=== PATIENT | female | born 1950 | race Caucasian/White ===

== ENCOUNTER 2017-03-03 16:11 | Emergency (ER) | payer MEDICARE, MEDICAID ==
[~2017-03-03] VITALS: Ht 162.6 cm; Wt 96.6 kg
[~2017-03-03 16:11] MED LIST: LEVO100T85 PO; LOSA50TA52 PO; OMEP-122 PO; PARO-38 PO; RIVA20TA PO
[2017-03-03 16:15] VITALS: Ht 162.6 cm; Wt 96.6 kg
--- OUTSIDE RECORDS SUMMARY | 2017-03-03 16:15 | XMS REPORT | Referral Summary ---
Author Author [facility], [facility] Organization [facility] Address Unknown Phone Unavailable Care Team Providers Care Inspector Dials Name Role Phone Bob Maloney Primary Care Physician [phone] Encounter VC Date(s): 06/21/16 - 06/21/16 [facility] [place], [address] [place] [id number] Discharge Disposition: 01-Home or Self Care Attending Physician: Bob Maloney DO Vital Signs No data available for this section Problem List Condition Effective Dates Status Health Status Informant Morbid Active patient obesity(Confirmed) Allergies, Adverse Reactions, Alerts No Known Medication Allergies Medications aspirin 0 Refill(s) Start Date: 05/14/15 Status: Ordered atenolol 100 mg oral tablet 100 mg 1 tabs, Oral, Daily, # 30 tabs, 0 Refill(s), Pharmacy: [id number], 1 tabs Oral Daily Start Date: 05/14/15 Status: Ordered levothyroxine 100 mcg (0.1 mg) oral tablet 100 mcg 1 tabs, Oral, Daily, # 90 tabs, 3 Refill(s), Pharmacy: [facility], 1 tabs Oral Daily Start Date: 06/15/16 Status: Ordered Results No data available for this section Immunizations No data available for this section Procedures No data available for this section Social History Social History Type Response Smoking Status Never smoker Assessment and Plan No data available for this section
--- OUTSIDE RECORDS SUMMARY | 2017-03-03 16:15 | XMS REPORT | Referral Summary ---
Author Author [facility] Organization [facility] Address Unknown Phone Unavailable Care Team Providers Care Truck Body Repairer Name Role Phone Bob Maloney Primary Care Physician [phone] Encounter VC Date(s): 06/11/15 - 06/11/15 [facility] [place], [address] [place] [address]- Discharge Diagnosis: Cataract of left eye Discharge Disposition: 01-Home or Self Care Attending Physician: Bob Maloney DO Admitting Physician: Bob Maloney DO Vital Signs Most recent to 1 oldest [Reference Range]: Temperature Tympanic 36.3 degC [36.6-38.1 degC] *LOW* (06/11/15 9:47 AM) Peripheral Pulse 60 bpm Rate [60-100 bpm] (06/11/15 9:47 AM) Blood Pressure 130/68 mmHg [90-140/60-90 mmHg] (06/11/15 9:47 AM) Problem List Condition Effective Dates Status Health Status Informant Morbid Active patient obesity(Confirmed) Allergies, Adverse Reactions, Alerts No Known Medication Allergies Medications aspirin 0 Refill(s) Start Date: 05/14/15 Status: Ordered atenolol 100 mg oral tablet 100 mg 1 tabs, Oral, Daily, # 30 tabs, 0 Refill(s), Pharmacy: [facility], 1 tabs Oral Daily Start Date: 05/14/15 Status: Ordered levothyroxine 100 mcg (0.1 mg) oral tablet 100 mcg 1 tabs, Oral, Daily, # 30 tabs, 0 Refill(s), Pharmacy: [facility], 1 tabs Oral Daily Start Date: 05/14/15 Status: Ordered Results No data available for this section Immunizations No data available for this section Procedures No data available for this section Social History Social History Type Response Smoking Status Never smoker Assessment and Plan Extracted from: Title: Office Visit Note Author: Bob Maloney DO Date: 06/11/15 Assessment/Plan Cataract of left eye 1. Will refer the patient to project scientist for further evaluation and recommendation for loss of vision of the left eye. Ordered: Office Visit Level 3 Est 24788
--- OUTSIDE RECORDS SUMMARY | 2017-03-03 16:15 | XMS REPORT | Referral Summary ---
Author Author [facility] Organization [facility] Address Unknown Phone Unavailable Care Team Providers Care Skate Maker Name Role Phone Bob Maloney Primary Care Physician [phone] Encounter VC Date(s): 07/04/16 - 07/04/16 [facility], [address] [place] [address]- Discharge Diagnosis: Generalized anxiety disorder Discharge Disposition: 01-Home or Self Care Attending Physician: Bob Maloney DO Admitting Physician: Bob Maloney DO Vital Signs Most recent to 1 oldest [Reference Range]: Temperature Tympanic 36.5 degC [36.6-38.1 degC] *LOW* (07/04/16 3:59 PM) Peripheral Pulse 78 bpm Rate [60-100 bpm] (07/04/16 3:59 PM) Blood Pressure 142/83 mmHg [90-140/60-90 mmHg] *HI* (07/04/16 3:59 PM) Problem List Condition Effective Dates Status Health Status Informant Morbid Active patient obesity(Confirmed) Allergies, Adverse Reactions, Alerts No Known Medication Allergies Medications aspirin 0 Refill(s) Start Date: 05/14/15 Status: Ordered atenolol 100 mg oral tablet 100 mg 1 tabs, Oral, Daily, # 30 tabs, 0 Refill(s), Pharmacy: [facility], 1 tabs Oral Daily Start Date: 05/14/15 Status: Ordered levothyroxine 100 mcg (0.1 mg) oral tablet 100 mcg 1 tabs, Oral, Daily, # 90 tabs, 3 Refill(s), Pharmacy: [facility], 1 tabs Oral Daily Start Date: 06/15/16 Status: Ordered omeprazole 20 mg oral delayed release tablet 20 mg 1 tabs, Oral, Daily, # 90 tabs, 3 Refill(s), Pharmacy: [facility] # [id number], 1 tabs Oral Daily,x90 days Start Date: 07/04/16 Stop Date: 06/29/17 Status: Ordered Paxil 20 mg oral tablet 20 mg 1 tabs, Oral, Daily, # 90 tabs, 3 Refill(s), Pharmacy: [facility] # [id number], 1 tabs Oral Daily,x90 days Start Date: 07/04/16 Stop Date: 06/29/17 Status: Ordered Xarelto 20 mg oral tablet 20 mg 1 tabs, Oral, qPM, # 30 tabs, 3 Refill(s), Pharmacy: [facility] # [id number], 1 tabs Oral qPM Start Date: 06/24/16 Status: Ordered Results No data available for this section Immunizations No data available for this section Procedures No data available for this section Social History Social History Type Response Smoking Status Never smoker Assessment and Plan Extracted from: Title: Office Visit Note Author: Bob Maloney DO Date: 07/04/16 Assessment/Plan 1.Generalized anxiety disorder 1. Continue with Paxil 20 mg daily. 2. Follow-up when she gets back from [place] for evaluation. Ordered: Office Visit Level 3 Est 89013 Orders: omeprazole, 20 mg 1 tabs, Oral, Daily, # 90 tabs, 3 Refill(s), Pharmacy: [facility] #[id number], 1 tabs Oral Daily,x90 days PARoxetine, 20 mg 1 tabs, Oral, Daily, # 90 tabs, 3 Refill(s), Pharmacy: [facility] #[id number], 1 tabs Oral Daily,x90 days
--- OUTSIDE RECORDS SUMMARY | 2017-03-03 16:15 | XMS REPORT | Referral Summary ---
Author Author [facility], [facility] Medicine Organization [facility] Address Unknown Phone Unavailable Care Team Providers Care Oracle R12 Developer Name Role Phone Bob Maloney Primary Care Physician [phone] Encounter VC Date(s): 06/15/16 - 06/15/16 [facility] [place], [address] [place] [id number]- Discharge Diagnosis: Pulmonary emboli Discharge Diagnosis: HTN (hypertension) Discharge Diagnosis: Adult onset hypothyroidism Discharge Disposition: 01-Home or Self Care Attending Physician: Bob Maloney DO Admitting Physician: Bob Maloney DO Vital Signs Most recent to 1 oldest [Reference Range]: Peripheral Pulse 77 bpm Rate [60-100 bpm] (06/15/16 2:50 PM) Respiratory Rate 18 br/min [14-20 br/min] (06/15/16 2:50 PM) Blood Pressure 138/80 mmHg [90-140/60-90 mmHg] (06/15/16 2:50 PM) SpO2 94 % (06/15/16 2:50 PM) Problem List Condition Effective Dates Status Health Status Informant Morbid Active patient obesity(Confirmed) Allergies, Adverse Reactions, Alerts No Known Medication Allergies Medications aspirin 0 Refill(s) Start Date: 05/14/15 Status: Ordered atenolol 100 mg oral tablet 100 mg 1 tabs, Oral, Daily, # 30 tabs, 0 Refill(s), Pharmacy: [id number], 1 tabs Oral Daily Start Date: 05/14/15 Status: Ordered levothyroxine 100 mcg (0.1 mg) oral tablet 100 mcg 1 tabs, Oral, Daily, # 90 tabs, 3 Refill(s), Pharmacy: [id number], 1 tabs Oral Daily Start Date: 06/15/16 Status: Ordered Results No data available for this section Immunizations No data available for this section Procedures No data available for this section Social History Social History Type Response Smoking Status Never smoker Assessment and Plan Extracted from: Title: Ambulatory Patient Education Author: Bob Maloney DO Date: 06/15/16 Family Medicine Embolia pulmonar (Pulmonary Embolism) John embolia pulmonar (EP) es un cogulo de beverley que varela viajado hasta el pulm n y obstruye la circulacin sangunea en el pulmn afectado. La mayor parte de los cogulos provienen de las venas profundas de las piernas o de la pelvis. Es un trastorno peligroso y potencialmente mortal que, si se diagnostica , puede tratarse. CAUSAS Los cogulos sanguneos pueden formarse en las venas por diferentes causas. Generalmente son varios los motivos que causan la formacin de cogulos. Entre los que se incluyen: El flujo sanguneo lento. El interior de la vena daado por algn motivo. El paciente tiene algn trastorno que favorece la formacin de co gulos. FACTORES DE RIESGO Algunas personas son ms propensas que otras a tener embolia pulmonar. Los factores de riesgo son: Fumar. Tener sobrepeso (ser manuel). Permanecer sentado o acostado jeevan un tiempo prolongado. Aqu se incluyen un viaje de larga distancia, casos de parlisis o en recuperacin de john enfermedad o ciruga. Otros factores que aumentan el riesgo son: La edad avanzada, especialmente despus de los 75aos de edad. Tener antecedentes familiares de cogulos de beverley o vika tenido ya un cogulo de beverley. Que le hayan practicado john ciruga mayor o de duracin prolongada. [place] es an ms frecuente en cirugas de cadera, rodilla o estmago (abdomen ). La ciruga de cadera es especialmente riesgosa. Tener colocado un tubo sher y jo (catter) dentro de john vena jeevan un procedimiento mdico. Fractura de cadera o de pierna. Cncer o tratamiento para el cncer. Los medicamentos que contienen estrgenos. Estos incluyen las pldoras anticonceptivas y la terapia de reemplazo hormonal. Otras afecciones circulatorias o cardacas. Embarazo y parto. Los cambios hormonales jeevan el embarazo facilitan la formacin de co gulos. El feto hace presin sobre las venas de la pelvis. Hay un riesgo de que se lesionen las venas jeevan el parto o la kiya kings. El riesgo es mayor inmediatamente despus del parto. PREVENCIN Ejercite las piernas con regularidad. Camine media hora todos los tran. Mantenga un peso apropiado para uriostegui altura. Evite permanecer sentado o parado sin moverse jeevan perodos prolongados. Las mujeres, especialmente las que tienen ms de 35aos, deben considerar los riesgos y beneficios de macie medicamentos que contengan estr ramirez, incluidas las pldoras anticonceptivas. No fume, especialmente si jonathon estrgenos. Los viajes de larga distancia pueden aumentar el riesgo. Ejercite las piernas caminando o moviendo los msculos john vez por hora. Muchos de los factores de riesgo anteriormente mencionados se refieren a situaciones que ocurren con la hospitalizacin, ya sea por enfermedad, lesin o ciruga programada. La prevencin puede ser con o sin medicamentos. El mdico lo evaluar para determinar la necesidad de prevenir la tromboembolia venosa cuando ingrese al hospital. Si debe someterse a john cirug a, uriostegui cirujano lo evaluar el mismo da o el da despus de la ciruga. SNTOMAS Los sntomas de john EP normalmente comienzan de repente, y entre ellos se incluyen: Falta de aire. Tos. Tos con beverley o mucosidad sanguinolenta. Dolor en el pecho. Dolor que empeora al hacer inspiraciones profundas. Latidos cardacos rpidos. DIAGNSTICO El mdico averiguar evelyn antecedentes mdicos, le zeina un examen fsico y descartar posibles causas para evaluar uriostegui riesgo de embolia pulmonar. Si tiene un riesgo intermedio o alto, pueden hacerle otros estudios. Estos incluyen los siguientes: Anlisis de beverley, adore estudios de coagulacin. Estudios de diagnstico por imgenes, adore ecografas, tomografas computarizadas, resonancias magnticas y otros exmenes para determinar si tiene cogulos de beverley en las piernas o los pulmones. Un electrocardiograma, para determinar si hay sobrecarga cardaca debido a cogulos sanguneos en los pulmones. TRATAMIENTO El tratamiento ms frecuente de la EP se realiza con medicamentos anticoagulantes que reducen la tendencia de la beverley a coagularse. Los anticoagulantes pueden impedir la formacin de nuevos cogulos sanguneos o el aumento del tamao de los cogulos existentes. No pueden disolver los co gulos ya formados. El organismo lo hace por s mismo con el tiempo. Los anticoagulantes pueden administrarse por va oral, intravenosa (IV) o inyectable. Uriostegui mdico determinar la mejor forma para usted. Con lolly frecuencia, se utilizan medicamentos para disolver los co gulos (trombolticos) para tratar la EP. Ellos conllevan un alto riesgo de sangrado, por lo que se utilizan principalmente en los casos ms graves. En contadas ocasiones, un cogulo de beverley en la pierna debe eliminarse quirrgicamente. Si usted no puede macie anticoagulantes, uriostegui mdico podra indicar la colocacin de un filtro en la vena principal del abdomen. Los filtros impiden que los cogulos lleguen a los pulmones. INSTRUCCIONES PARA EL CUIDADO EN EL HOGAR [place] todos los medicamentos adore se lo haya indicado el mdico. Aprenda tanto adore pueda sobre la TVP. Utilice un brazalete o lleve consigo john tarjeta de alerta mdico. Consulte con uriostegui mdico cundo podr volver a evelyn actividades normales. Es importante mantenerse activo para prevenir los cogulos sangu neos. Si est tomando un medicamento anticoagulante, evite los deportes de contacto. Es muy importante hacer ejercicios. [place] es especialmente importante jeevan viajes, o al estar sentado o de pie jeevan largos perodos. Camine o contraiga y relaje frecuentemente los msculos de las piernas para ejercitarlas. Camine con frecuencia. Es posible que deba usar medias de compresin. Son medias elsticas apretadas que aplican presin a las piernas. Esta presin ayuda a evitar que la beverley en las piernas se coagule. Sales Recruiting Coordinator tomarla warfarina La warfarina es un medicamento que se jonathon diariamente por va oral. Uriostegui m dico le indicar la duracin del tratamiento (generalmente de 3 a 6meses y a veces toda la lainey). Si jonathon warfarina: Aprenda sprinkler fitter helper macie warfarina y cules son los alimentos que pueden influir en el efecto que esta tiene en el organismo. Las dosis altas y bajas de warfarina son peligrosas. El exceso de warfarina aumenta el riesgo de sangrado. Dosis demasiado bajas de warfarina aumentan el riesgo de formacin de cogulos. La warfarina y los anlisis de beverley peridicos Jeevan el tratamiento con warfarina, es necesario que se realicen helga dicamente anlisis de beverley que miden el tiempo de coagulacin. Estos an lisis de beverley suelen incluir tanto el tiempo de protrombina (PT) adore el ndice internacional normalizado (INR). Los resultados del PT y del INR permiten al mdico ajustar la dosis de warfarina. Es muy importante que le cesilia an lisis del PT y el INR con la frecuencia que el mdico lo indique. La warfarina yla dieta Evite cambios importantes en uriostegui dieta, o hable con uriostegui mdico antes de cambiarla. Programe john loida con un nutricionista matriculado para que responda evelyn preguntas. Muchos de los alimentos, especialmente los que contienen vitamina K pueden interferir con la warfarina y afectar los resultados de PT y del INR. Debe ingerir john cantidad gume de alimentos con alto contenido de vitaminaK, entre los que se incluyen: espinaca, col rizada, brcoli, repollo, acelga y nabos verdes, repollitos de Bruselas, guisantes, coliflor, algas y perejil. Hgado de luda y de cerdo. T ankur. Aceite de soja. La warfarina y otros medicamentos Muchos medicamentos interfieren con la warfarina y afectan los resultados del PT y del INR. Usted debe: Informar al mdico sobre todos los medicamentos, las vitaminas y los suplementos que jonathon, entre ellos, aspirina y otros antiinflamatorios de venta berhane. Tenga especial cuidado con la aspirina y los medicamentos antiinflamatorios. Consulte a uriostegui mdico antes de tomarlos. No tome ni suspenda ningn medicamento tanto recetado adore de venta berhane, excepto si se lo indica el mdico o el farmacutico. Efectos secundarios de la warfarina La warfarina puede causar efectos secundarios, por ejemplo, hematomas y dificultad para detener el sangrado. Pregntele al mdico o al farmacutico sobre otros efectos secundarios de la warfarina. Usted deber: Ejercer presin sobre las heridas cortantes jeevan ms tiempo que lo habitual. Informar al dentista y a otros mdicos que est tomando warfarina, antes de someterse a cualquier procedimiento que pueda causar sangrado. La warfarina con alcohol y tabaco Beber alcohol con frecuencia puede potenciar el efecto de la warfarina y causar sangrado excesivo. Es preferible evitar macie bebidas alcohlicas o consumir solo muy pequeas cantidades cuando se est en tratamiento con warfarina. Hgale saber a uriostegui mdico si modifica uriostegui consumo de alcohol. No consuma ningn producto que contenga tabaco, adore cigarrillos, tabaco de mascar o cigarrillos electrnicos. Si fuma, abandone el hbito. P louise ayuda al mdico, si es necesario. Medicamentos alternativos de la warfarina: Inhibidores del factorX activado Estos anticoagulantes se kacie por va oral, generalmente jeevan varias semanas o ms tiempo. Es importante que tome el medicamento a la misma hora todos los tran. No es necesario realizar anlisis de beverley peridicos cuando se kacie estos medicamentos. Estos tienen menos interacciones con los alimentos y los medicamentos que la warfarina. Los efectos secundarios de esta clase de medicamentos son similares a los que se presentan con la warfarina, incluidos los hematomas y el sangrado excesivos. Pregnteles al mdico o al farmacutico sobre otros posibles efectos secundarios. SOLICITE ATENCIN MDICA SI: Nota que el ritmo de evelyn latidos cardacos est acelerado. Se siente ms dbil o ms cansado que de costumbre. Siente que va a desmayarse. Observa un aumento de los hematomas. Siente que los sntomas no mejoran en el tiempo esperado. Tiene efectos secundarios por el medicamento. SOLICITE ATENCIN MDICA DE INMEDIATO SI: Siente dolor en el pecho. Tiene dificultad para respirar. Aumenta la hinchazn o el dolor en john pierna. Tose y escupe beverley. Nota beverley en el vmito, en las heces o en la orina. Tiene fiebre. Los sntomas de EP pueden representar un problema grave que es john emergencia.No espere para arthur si los sntomas desaparecen. Solicite atencin m dica de inmediato. Comunquese con el servicio de emergencias de uriostegui localidad (911 en los [place]).No conduzca por evelyn propios medios hasta el hospital. Esta informacin no tiene adore fin reemplazar el consejo del mdico. [facility] rese de hacerle al mdico cualquier pregunta que tenga. Document Released: 08/09/2006 Document Revised: 11/20/2015 [facility] Patient Information 2016 [place]. Pharmacology Warfarina: lo que debe saber (Warfarin: What You Need to Know) La warfarina es un anticoagulante. Los anticoagulantes ayudan a prevenir la formacin de cogulos de beverley. Tambin ayudan a detener el desarrollo de co gulos de beverley. A veces, se dice que la warfarina es un "anticoagulante". Normalmente, cuando hay un garrett o lesin en los tejidos, los cogulos impiden la prdida de beverley. A veces, se sriram cogulos dentro de los vasos sanguneos que obstruyen el flujo sanguneo a travs del sistema circulatorio (trombosis). Estos cogulos pueden viajar por el torrente sangu irwin y se alojan en los vasos sanguneos pequeos del cerebro, lo que puede causar un ictus, o en los pulmones (embolia pulmonar). QUINES DEBEN UTILIZAR WARFARINA La warfarina se receta en aquellos pacientes que tienen riesgo de desarrollar co gulos sanguneos peligrosos: Las personas que tienen john vlvula cardaca mecnica, un ritmo card aco irregular llamado fibrilacin auricular o ciertos trastornos de la coagulacin. Las personas que tuvieron cogulos sanguneos peligrosos en el pasado, incluidas las que tuvieron un ictus, john embolia pulmonar o trombosis en las piernas (trombosis venosa profunda [TVP]). Las personas con un cogulo sanguneo existente, adore john embolia pulmonar. DOSIS DE WARFARINA Los comprimidos de warfarina vienen en diferentes concentraciones. Cada krupa de ellos es de diferente color y tiene la cantidad de warfarina (en miligramos) claramente impresa en el comprimido. Si cuando le aida john nueva receta el color del comprimido es diferente al habitual, infrmelo inmediatamente a uriostegui farmac utico o mdico. SUPERVISIN DE LA WARFARINA El objetivo del tratamiento con warfarina es disminuir la formacin de co gulos, marlon no impedir completamente la coagulacin. Uriostegui mdico supervisar atentamente el efecto anticoagulante de la warfarina y ajustar la dosis seg n sea necesario. Por uriostegui seguridad, se usan anlisis de beverley llamados tiempo de protrombina (PT) o ndice internacional normalizado (INR). Ambos anlisis pueden hacerse con un pinchazo en el dedo o con john extraccin de beverley. Cuanto ms tiempo necesite la beverley para coagular, mayor ser el nivel de TP o de INR. Uriostegui mdico le informar cul es uriostegui rango de PT o INR "deseado". Si en cualquier momento uriostegui PT o INR estn por encima del rango deseado, existe riesgo de hemorragia. Si el nivel de PT o INR es lolly que el rango deseado, existe riesgo de formar cogulos. Ya sea que comience a recibir warfarina mientras est hospitalizado o en el consultorio de uriostegui mdico, deber controlarse el PT o INR dentro de la primera semana de comenzar el medicamento. Inicialmente, a algunas personas se les indica que se controlen el PT o INR hasta dos veces por semana. John vez que se haya encontrado la dosis de mantenimiento, le controlarn el PT o INR con menos frecuencia, generalmente john vez cada dos a cuatro semanas. La dosis de warfarina podra ajustarse si el PT o INR no estn dentro del rango deseado. Es importante que cumpla con los controles de laboratorio y las consultas mdicas que le indiquen. No cumplir con las visitas puede resultar en john lesin, dolor o discapacidad crnica o permanente debido a que la warfarina es un medicamento que requiere john estrecha vigilancia. CULES SON LOS EFECTOS ADVERSOS DE LA WARFARINA? Ryann cantidad de warfarina puede producir sangrado (hemorragia) en cualquier parte del cuerpo. Podra ser sangrado de las encas, beverley en la orina, materia fecal con beverley u oscura, hemorragia nasal que no frena f cilmente, escupir beverley al toser o vomitar con beverley. Muy poca cantidad de warfarina puede aumentar el riesgo de cogulos sanguneos. Muy poca o ryann warfarina tambin puede aumentar el riesgo de ictus. La warfarina puede causar john erupcin cutnea o irritacin, fiebre inusual, nuseas o malestar estomacal constantes o dolor intenso en las articulaciones o la espalda. PRECAUCIONES ESPECIALES MIENTRAS SE EST TOMANDO WARFARINA La warfarina debe ser tomada exactamente adore se le indic. Es muy importante que reciba la warfarina segn las indicaciones, ya que podra tener tanto john hemorragia adore cogulos sanguneos que terminen produciendo john lesin, dolor o discapacidad crnica o permanente. [place] el medicamento todos los tran a la misma hora. Si olvida macie john dosis, puede tomarla si an no pasaron 6horas del momento correspondiente. No modifique la dosis de warfarina por evelyn propios medios para compensar la dosis que varela omitido. Si omite ms de dos dosis consecutivas, comunquese con uriostegui mdico para que le d indicaciones. Evite las situaciones que le puedan producir hemorragias. Puede tener tendencia a sangrar ms fcilmente que lo habitual mientras jonathon warfarina. Las siguientes recomendaciones pueden limitar el sangrado: Utilice un cepillo de dientes blando. Utilice un hilo dental encerado. Rasrese con afeitadora elctrica y no con hoja de afeitar. Limite el uso de objetos afilados. Evite las actividades potencialmente peligrosas, adore los deportes de contacto. Warfarina y embarazo o amamantamiento No se aconseja el uso de warfarina jeevan el primer trimestre del embarazo debido al aumento de riesgo para el beb de tener defectos aaron nitos. En ciertas situaciones, john jovita puede macie warfarina despus del primer trimestre del embarazo. John jovita que queda embarazada o planifica estarlo mientras jonathon warfarina debe informarlo al mdico inmediatamente. Aunque la warfarina no pasa hacia la leche materna, john jovita que desea amamantar mientras est tomando warfarina debe consultarlo con uriostegui mdico. Consumo de alcohol, tabaquismo y drogas ilegales El alcohol afecta la forma en que la warfarina funciona en el organismo. Es preferible evitar las bebidas alcohlicas o consumir muy pequeas cantidades cuando se est en tratamiento con warfarina. En general, debe limitar el consumo de alcohol a 1onza (30ml) de licor, 6onzas (180ml) de vino o 12onzas (360ml) de cerveza por da. Hgale saber a uriostegui mdico si modifica uriostegui consumo de alcohol. El tabaquismo afecta el funcionamiento de la warfarina. Lo ideal es evitar fumar cuando se est en tratamiento con warfarina. Hgale saber a uriostegui m dico si modifica uriostegui hbito de tabaquismo. Lo ideal es evitar todas las drogas ilegales cuando se est en tratamiento con warfarina porque existen pocos estudios que muestren sprinkler fitter helper interacta con estas drogas. Otros medicamentos y suplementos nutricionales Muchos medicamentos recetados y de venta berhane pueden interferir con la warfarina. Asegrese de informar a todos evelyn mdicos que est tomando warfarina. Notifique al mdico que le recet la warfarina o al farmacutico antes de comenzar o interrumpir cualquier otro medicamento, incluso las vitaminas, los suplementos dietarios y los medicamentos para el dolor de venta berhane. Es posible que deba ajustar la dosis de warfarina. Algunos medicamentos de venta berhane que pueden aumentar el riesgo de sangrado mientras est tomando warfarina son los siguientes: Paracetamol. Aspirina. Antiinflamatorios no esteroides (SALAZAR), adore ibuprofeno o naproxeno. Vitamina E. Consideraciones nutricionales Los alimentos con cantidades moderadas o altas de vitaminaK interfieren con la warfarina. Evite cambios importantes en uriostegui dieta, o hable con uriostegui mdico antes de cambiarla. Consuma john cantidad consistente de alimentos con un nivel moderado o alto de vitaminaK. Consumir menos alimentos con vitaminaK puede aumentar el riesgo de sangrado. Consumir ms de estos alimentos puede aumentar el riesgo de cogulos sanguneos. Consulte a un nutricionista si tiene otras preguntas sobre las consideraciones en la dieta. Alimentos que tienen un nivel muy alto de vitaminaK: Los vegetales, adore la acelga suiza y la remolacha, y las hojas de berza , mostaza o nabo (frescos o congelados, cocidos). Col rizada (fresca o congelada, cocida). Perejil (crudo). Espinaca (cocida). Alimentos que tienen un nivel alto de vitaminaK: Esprragos (frescos, cocidos). Brcoli. Repollo mei (cocido). Repollitos de Bruselas (frescos o congelados, cocidos). Repollo (cocido). Col. Alimentos que tienen un nivel moderado de vitaminaK: Arndanos. Frijoles aroldo. Endivia (cruda). Savana de hoja ankur (cruda). Cebollines verdes (crudos). Col rizada (cruda). Quimbomb (congelado, cocido). Pltanos (fritos). Savana chace (cruda). Chucrut (en shaun). Espinaca (cruda). LLAME A URIOSTEGUI CLNICA O MDICO SI USTED: Planifica someterse a john ciruga o un procedimiento. Se siente enfermo, especialmente si tiene diarrea o vmitos. Hace o planifica hacer cambios importantes en la dieta. Comienza a macie o interrumpe medicamentos recetados o de venta berhane. Queda embarazada, planifica quedar o beatris estarlo. Tiene perodos menstruales ms abundantes. Sufre john cada, un accidente o tiene sntomas de sangrado o hematomas inusuales. Tiene fiebre inusual. LLAME AL 911 EN LOS ESTADOS UNIDOS O CONCURRA AL SERVICIO DE EMERGENCIAS SI USTED: Beatris que tiene john reaccin alrgica a la warfarina. Los signos de john reaccin alrgica pueden ser picazn, erupcin, ronchas, hinchazn, opresi n en el pecho o problemas para respirar. Observa beverley en la orina. Los signos pueden ser orina de color t, rojizo o weaver. Observa beverley en las heces. Los signos pueden ser heces negras o jefferson brillante. Vomita o tose con beverley. En estos casos, la beverley podra ser de color jefferson brillante o tener la apariencia de "caf molido". Tiene sangrado que no se interrumpe despus de aplicar presin jeevan 30minutos, por ejemplo hi, sangrado de la nariz u otras lesiones. Tiene dolor intenso en las articulaciones o la espalda. Tiene dolor de kassy intenso. Siente debilidad o adormecimiento sbito de la francia, el brazo o la pierna, especialmente en un lado del cuerpo. Siente confusin o problemas para comprender sbitamente. Tiene dificultad sbita en la visin de krupa o ambos ojos. Tiene problemas para caminar, mareos, prdida del equilibrio o de la coordinacin sbitamente. Tiene dificultad para hablar o comprender (afasia). Esta informacin no tiene adore fin reemplazar el consejo del mdico. Aseg rese de hacerle al mdico cualquier pregunta que tenga. Document Released: 02/14/2008 Document Revised: 11/20/2015 [facility] Patient Information 2016 [place]. No follow up information was provided. Extracted from: Title: Office Visit Note Author: Bob Maloney DO Date: 06/15/16 Assessment/Plan 1.Pulmonary emboli, Other pulmonary embolism without acute cor pulmonale 1. Hospital records are reviewed in detail. I agree with the recommendations made by the hospitalist. 2. We had the clinical pharmacist look into whether her insurance would cover Xarelto. She does not have any prescription coverage. 3. Pathophysiology of pulmonary embolism discussed in detail with the patient in her akut[place] language, all questions were answered. 4. Management of anticoagulation therapy with Coumadin was discussed in detail. 5. Her INR yesterday was 2.5, continue with warfarin 5 mg daily. Recheck INR in one week. 6 . She will need repeat chest CT with PE protocol in 6 months. Ordered: [facility] 7 Day Disch [id number] 2.HTN (hypertension), Essential (primary) hypertension 1. Her blood pressure is well controlled at this time. 2. Continue low-salt diet. 3. Weight loss recommended. 4. Continue with amlodipine, atenolol and losartan/hydrochlorothiazide as previous. 5. Follow-up in 3 months for blood pressure management. Ordered: [facility] 7 Day Disch [id number] 3.Adult onset hypothyroidism, Other specified hypothyroidism 1. Continue with levothyroxine 100 g daily. 2. Recheck TSH in 6 months. Ordered: [facility] 7 Day Disch [id number] Orders: levothyroxine, 100 mcg 1 tabs, Oral, Daily, # 90 tabs, 3 Refill(s), Pharmacy: [id number], 1 tabs Oral Daily
--- OUTSIDE RECORDS SUMMARY | 2017-03-03 16:15 | XMS REPORT | Referral Summary ---
Author Author [facility], Family Medicine Organization [facility] Address Unknown Phone Unavailable Care Team Providers Care Strap Buckler Machine Name Role Phone Bob Maloney Primary Care Physician [phone] Encounter VC Date(s): 06/20/16 - 06/20/16 [facility], [address] [place] [address]- Discharge Disposition: 01-Home or Self Care Attending Physician: Bob Maloney DO Admitting Physician: Bob Maloney DO Vital Signs No data available for this section Problem List Condition Effective Dates Status Health Status Informant Morbid Active patient obesity(Confirmed) Allergies, Adverse Reactions, Alerts No Known Medication Allergies Medications aspirin 0 Refill(s) Start Date: 05/14/15 Status: Ordered atenolol 100 mg oral tablet 100 mg 1 tabs, Oral, Daily, # 30 tabs, 0 Refill(s), Pharmacy: [id number], 1 tabs Oral Daily Start Date: 05/14/15 Status: Ordered levothyroxine 100 mcg (0.1 mg) oral tablet 100 mcg 1 tabs, Oral, Daily, # 90 tabs, 3 Refill(s), Pharmacy: [facility], 1 tabs Oral Daily Start Date: 06/15/16 Status: Ordered Results No data available for this section Immunizations No data available for this section Procedures No data available for this section Social History Social History Type Response Smoking Status Never smoker Assessment and Plan No data available for this section
--- OUTSIDE RECORDS SUMMARY | 2017-03-03 16:15 | XMS REPORT | Continuity of Care Document ---
Author Author [facility] Organization [facility] Address Unknown Phone Unavailable Support Name Relationship Address Phone TANYA SMITH MD Caregiver [address] [place] [address] Unavailable TANYA SMITH MD Caregiver [address] [place] [address] Unavailable MELL COSTA DO Caregiver [address] [place] [address] Unavailable JORGE MAY DO Caregiver [address] [place] [address] [place] [address] Unavailable ALLYSON YAO Next Of Kin [address] [place], [place] [id number] Insurance Providers Guarantor Abril Multani Address [address] [place] [address] Email DENIED/NO TO PT PORTAL Payer Medicaid Policy Number [id number] Subscriber's Name Abril Multnai Relationship 18 Self Effective Date 16 Expiration Date 16 Payer Medicare Policy Number [id number] Subscriber's Name Abril Multani Relationship 18 Self Advance Directives Directive Response Recorded Date/Time Ordered Resuscitation Status Full Code 06/10/16 11:31pm Resuscitation Documents on File No 06/10/16 11:58pm DPOA for Healthcare Only No 06/10/16 11:58pm Living Will No 06/10/16 11:58pm Problems Active Problems Medical Problem Onset Date Status Acute pulmonary embolism Unknown Acute CAD (coronary artery disease) Unknown Chronic Depression Unknown Chronic HTN (hypertension) Unknown Chronic Hyperglycemia Unknown Acute Hypokalemia Unknown Acute Hypothyroidism Unknown Chronic Morbid obesity Unknown Chronic Medications Current Home Medications Medication Dose Units Route Directions Days Qty Instructions Start Date Amlodipine Besylate 5 Mg Tablet 5 Mg Oral Daily 06/10/16 Difenidol 25 Mg Oral Daily 06/10/16 Enoxaparin Sodium (Lovenox) 150 Mg/Ml Inj 150 Mg Sub-Q Daily 5 Days 06/11/16 Levothyroxine Sodium 100 Mcg Tablet 100 Mcg Oral Daily 07/07/13 Losartan/Hydrochlorothiazide (Losartan-Hctz 50-12.5 Mg Tab) 1 Each Tablet 1 Tab Oral Daily 06/10/16 Warfarin Sodium (Coumadin) 5 Mg Tablet 5 Mg Oral Give At Noon 30 Tablet Take 1 tablet, by mouth, 1 time a day (at NOON). 06/11/16 Past Home Medications Medication Directions Ordered Status Aspirin 81 Mg Tab.chew, 100 Mg Oral Bedtime 07/07/13 Discontinued Social History Social History Problem Response Recorded Date/Time Onset Date Status Chewing Tobacco Status No 07/06/2013 9:10pm Not Applicable Not Applicable Hx Alcohol Use No 06/10/2016 11:23pm Not Applicable Not Applicable Has the pt used tobacco in the last 12 months No 06/11/2016 12:04am Not Applicable Not Applicable Tobacco Usage none 06/10/2016 11:44pm Not Applicable Not Applicable Query Response Start Date Stop Date Smoking Status Never smoker Hospital Discharge Instructions Instructions: Care Instructions: Reason for Hospitalization: Acute PE I was in the hospital because (patient own words): "I felt really bad, blood clot" Discharge Diet: Regular diet Discharge Activity: Activity as tolerated Follow Up Appointments: Make follow up apt with Dr May for next week. You will need to have a INR lab drawn on mondayJun [address] May's office. Call his nurse monday to arrage this. Pending Lab / Results: No Pending Lab Patient Instructions: Stop taking Aspirin Present to [facility] infusion for Lovenox injections daily for 5 days Take Coumadin 5 mg once a day. This dose may need to be changed based on your INR blood draw on Monday. Dr. May well monitor your dosing following discharge from the hospital. Notify Physician If: Severe chest pain, severe shortness of breath, high fevers, severe headache or other concerning symptoms. Condition at time of discharge: Good Plan of Care Discharge Date 06/11/16 4:30pm Disposition 01 DISCHARGED HOME, SELF-CARE Instructions/Education Provided [facility] Discharge Instructions DI for Pulmonary Embolism Prescriptions See Medication Section Care Plan and Goals See Discharge Instructions Section Functional Status Query Response Date Recorded Mobility Status Ambulatory June 11, 2016 3:58pm Assistive Devices None June 11, 2016 3:58pm Activity Limitations Shortness of breath June 11, 2016 3:58pm Feeding Ability Independent June 11, 2016 3:58pm Toileting Ability Independent June 11, 2016 3:58pm Grooming Ability Independent June 11, 2016 3:58pm Dressing Ability Independent June 11, 2016 3:58pm Driving Ability Dependent June 11, 2016 3:58pm Housework Ability Dependent June 11, 2016 3:58pm Meal Preparation Ability Dependent June 11, 2016 3:58pm Stair Climbing Ability Independent June 11, 2016 3:58pm Ability to complete ADL's impeded by No change June 11, 2016 3:58pm Cognitive/Perceptual Impairments None June 11, 2016 3:58pm Preferred Method of Learning Video/TV June 11, 2016 12:07am Allergies, Adverse Reactions, Alerts Allergen Type Severity Reaction Status Last Updated NKDA Allergy Unknown Active 06/10/16 Immunizations Query Response on File Recorded Date/Time Hx Influenza Vaccination No 06/11/16 12:04am Hx Pneumococcal Vaccination No 06/11/16 12:04am Hx Influenza Vaccination No 06/11/16 12:04am Vital Signs Acute Vital Signs Vital Response Date/Time Temperature (Fahrenheit) 96.0 deg F (96.8 - 99.1) 06/11/2016 3:36pm Temperature (Calculated Celsius) 35.38917 degrees C (36.0 - 37.3) 06/11/2016 3:36pm Pulse Rate (adult) 63 bpm (60 - 100) 06/11/2016 3:36pm Respiratory Rate 18 breaths/min (10 - 20) 06/11/2016 3:36pm O2 Sat by Pulse Oximetry 96 % (90 - 100) 06/11/2016 3:36pm Oxygen Delivery Method Room Air 06/11/2016 3:36pm Blood Pressure 122/66 mm Hg 06/11/2016 3:36pm Blood Pressure Source Automatic Cuff 06/11/2016 3:36pm Height (Feet) 5 feet 06/10/2016 11:58pm Height (Inches) 3.00 inches 06/10/2016 11:58pm Weight (Kilograms) 101.200 kg 06/11/2016 7:43am Body Mass Index (BMI) 4.4 06/10/2016 11:58pm Results Laboratory Results Test Name Result Units Flags Reference Collection Date/Time Result Date/ Time Comments White Blood Count 9.0 T/MM3 4.5-11.0 06/11/2016 4:41am 06/11/2016 5: 38am Red Blood Count 4.87 M/MM3 4.00-5.20 06/11/2016 4:4106/11/2016 5: 38am Hemoglobin 13.7 GM/DL 12-16 06/11/2016 4:4106/11/2016 5:38am Hematocrit 42.9 % 36-46 06/11/2016 4:4106/11/2016 5:38am Mean Corpuscular Volume 88.1 UM3 80-100 06/11/2016 4:4106/11/2016 5: 38am Mean Corpuscular Hemoglobin 28.1 UUG 26-34 06/11/2016 4:412015 5:38am Mean Corpuscular Hemoglobin Concent 31.9 GM/DL 31-37 06/11/2016 4:06/11/2016 5:38am RDW Standard Deviation 47.2 FL 36.9-50.2 06/11/2016 4:4106/11/2016 5 :38am Platelet Count 270 T/MM3 130-400 06/11/2016 4:06/11/2016 5:38am Mean Platelet Volume 12.0 UM3 9.4-12.4 06/11/2016 4:06/11/2016 5: 38am Neutrophils (%) (Auto) 40.9 % 33-66 06/11/2016 4:06/11/2016 5: 38am Lymphocytes (%) (Auto) 50.2 % H 23-45 06/11/2016 4:06/11/2016 5: 38am Monocytes (%) (Auto) 6.8 % 0-9.0 06/11/2016 4:06/11/2016 5:38am Eosinophils (%) (Auto) 1.6 % 0-4 06/11/2016 4:06/11/2016 5:38am Basophils (%) (Auto) 0.3 % 0-2 06/11/2016 4:06/11/2016 5:38am Immature Granulocyte % (Auto) 0.2 % 0.0-0.5 06/11/2016 4:412015 5:38am Absolute Neutrophils (auto) 3.7 T/MM3 1.8-7.7 06/11/2016 4:41am 2015 5:38am Absolute Lymphocytes (auto) 4.5 T/MM3 1-4.8 06/11/2016 4:41am 2015 5:38am Absolute Monocytes (auto) 0.6 T/MM3 0-0.8 06/11/2016 4:41am 06/11/2016 5:38am Absolute Eosinophils (auto) 0.1 T/MM3 0-0.5 06/11/2016 4:41am 2015 5:38am Absolute Basophils (auto) 0.0 T/MM3 0-0.2 06/11/2016 4:41am 06/11/2016 5:38am Absolute Immature Granulocyte (auto 0.02 T/MM3 0.00-0.03 06/11/2016 4: 4106/11/2016 5:38am Prothromb Time International Ratio 1.01 0.99-1.21 06/11/2016 4:41am 06/11/2016 5:41am THERAPUTIC RANGE=2.00-3.00 FOR ANTI-THROMBOSIS THERAPUTIC RANGE=2.50-3.50 FOR IMPLANTED VALVE D-Dimer 311 NG/ML H 0-230 06/10/2016 9:12pm 06/10/2016 9:36pm <230 NG/ ML D-DU=PRESUMPTIVE NEGATIVE FOR PE OR DVT >230 NG/ML D-DU=ADDITIONAL EVAL FOR PE OR DVT RECOMMENDED Icterus Index < 2 0-7 06/11/2016 4:41am 06/11/2016 5:45am Chemistry Specimen Hemolysis < 15 0-25 06/11/2016 4:41am 06/11/2016 5 :45am 0-25: Specimen Exhibited No Hemolysis. Turbidity < 20 0-20 06/11/2016 4:41am 06/11/2016 5:45am Sodium Level 145 MEQ/L H 134-144 06/11/2016 4:41am 06/11/2016 5:45am Potassium Level 3.8 MEQ/L 3.6-5 06/11/2016 4:41am 06/11/2016 5:45am Chloride Level 103 MEQ/L 98-107 06/11/2016 4:41am 06/11/2016 5:45am Carbon Dioxide Level 32 MEQ/L H 22-30 06/11/2016 4:4106/11/2016 5: 45am Anion Gap 10 MEQ/L 5-15 06/11/2016 4:41am 06/11/2016 5:45am Blood Urea Nitrogen 11.0 MG/DL 7-17 06/11/2016 4:4106/11/2016 5: 45am Creatinine 0.6 MG/DL L 0.7-1.2 06/11/2016 4:41am 06/11/2016 5:45am BUN/Creatinine Ratio 18 RATIO 6-26 06/11/2016 4:4106/11/2016 5:45am Glomerular Filtration Rate Calc 100 06/11/2016 4:41am 06/11/2016 5: 45am Glucose Level 125 MG/DL H 65-110 06/11/2016 4:4106/11/2016 5:45am Calculated Osmolality 279 MOSM/KG 261-280 06/11/2016 4:4106/11/2016 5:45am Calcium Level 8.9 MG/DL 8.4-10.2 06/11/2016 4:4106/11/2016 5:45am Troponin I < 0.012 ng/ml 0-0.12 06/11/2016 4:41am 06/11/2016 5:57am Troponin values with a difference of 55% increase from orginal troponin value represent a true biological DELTA value. (%increase Calc=Orginal Troponin value, divided by subsequent Troponin value, multiplied by 100) PR-Wpu-C-Type Natriuretic Peptide 214 PG/ML H 0-175 06/10/2016 9:12pm 9:38pm Rule in cut points: <50 years old=450; 50-75 years old=900; >75 years old=1800; When utilizing ProBNP rule-in cut points, adjustment for impaired renal function is typically not required. Magnesium Level 1.8 MG/DL 1.6-2.3 06/10/2016 9:12pm 06/10/2016 11:52pm Hemoglobin A1c 7.3 % 6.1-7.9 06/10/2016 9:12pm 06/11/2016 12:03am < 6.0 NON-DIABETIC RANGE 6.1-7.9 [facility] TARGET RANGE >8.0 ACTION SUGGESTED Glucometer 186 mg/dL H 65-110 06/11/2016 2:24pm 06/11/2016 2:27pm Name: ABRIL MULTANI Unit #: [id number] : 1950 Sex: F DISCHARGE SUMMARY Admit Date: 06/10/16 Report #: [id number] [facility] MONICA VELAZQUEZ V [employer] 06/11/16 1602: General Date Date DATE: 06/11/16 TIME: 15:56 Attending Physician Tanya Smith MD Admitting Physician Tanya Smith MD Consulting Physician None Admitting Diagnosis Pulmonary Emboli Discharge Diagnosis Pulmonary Emboli Procedures None Laboratory Laboratory Tests Test 06/10/16 21:12 06/11/16 04:41 06/11/16 10:32 06/11/16 14:24 White Blood Count 11.4T/MM3 9.0T/MM3 Red Blood Count 5.03M/MM3 4.87M/MM3 Hemoglobin 14.6GM/DL 13.7GM/DL Hematocrit 43.8% 42.9% Mean Corpuscular Volume 87.1UM3 88.1UM3 Mean Corpuscular Hemoglobin 29.0UUG 28.1UUG Mean Corpuscular Hemoglobin Concent 33.3GM/DL 31.9GM/DL RDW Standard Deviation 46.5FL 47.2FL Platelet Count 258T/MM3 270T/MM3 Mean Platelet Volume 11.2UM3 12.0UM3 Immature Granulocyte % (Auto) 0.3% 0.2% Neutrophils (%) (Auto) 43.1% 40.9% Lymphocytes (%) (Auto) 48.7% 50.2% Monocytes (%) (Auto) 6.6% 6.8% Eosinophils (%) (Auto) 0.9% 1.6% Basophils (%) (Auto) 0.4% 0.3% Absolute Immature Granulocyte (auto 0.03T/MM3 0.02T/MM3 Absolute Neutrophils (auto) 4.9T/MM3 3.7T/MM3 Absolute Lymphocytes (auto) 5.6T/MM3 4.5T/MM3 Absolute Monocytes (auto) 0.8T/MM3 0.6T/MM3 Absolute Eosinophils (auto) 0.1T/MM3 0.1T/MM3 Absolute Basophils (auto) 0.0T/MM3 0.0T/MM3 Prothromb Time International Ratio 0.97 1.01 D-Dimer 311NG/ML Turbidity < 20 < 20 Sodium Level 143MEQ/L 145MEQ/L Potassium Level 3.3MEQ/L 3.8MEQ/L Chloride Level 101MEQ/L 103MEQ/L Carbon Dioxide Level 29MEQ/L 32MEQ/L Anion Gap 13MEQ/L 10MEQ/L Blood Urea Nitrogen 13.0MG/DL 11.0MG/DL Creatinine 0.7MG/DL 0.6MG/DL Glomerular Filtration Rate Calc 83 100 BUN/Creatinine Ratio 19RATIO 18RATIO Glucose Level 201MG/DL 125MG/DL Hemoglobin A1c 7.3% Calculated Osmolality 281MOSM/KG 279MOSM/KG Calcium Level 9.1MG/DL 8.9MG/DL Magnesium Level 1.8MG/DL Icterus Index < 2 < 2 Troponin I < 0.012ng/ml < 0.012ng/ml EO-Wac-L-Type Natriuretic Peptide 214PG/ML Chemistry Specimen Hemolysis < 15 < 15 Glucometer 149mg/dL 186mg/dL Microbiology None Radiology CT Antiography- Acute pulmonary emboli found. History of Present Illness Abril is a 65 year old female who developed abrupt upper chest pain around noon today while sitting after finishing a meal. Wood like her shirt was on too tight and felt mildly short of air. Denies any recent fever or coughing. 2 weeks ago she was visiting in [place] and had some chest pain and was told she had a heart attack. Remaining history regarding this event is vague. Patient states they did not do any surgical intervention. 4 days ago she returned to [facility] via bus. Today, she came to the emergency room for evaluation of the chest pain. Vital signs showed a temperature of 98.5, blood pressure 145/81, respiratory rate 22, heart rate 83, O2 sats 94% on room air. Labwork was obtained showing a mildly elevated white count of 11.4, depressed potassium at 3.3, elevated glucose of 201 (patient denies history of diabetes), troponin less than 0.012, BNP 214, INR 0.97 and d-dimer mildly elevated at 311. CTA of the chest was performed and showed acute pulmonary embolism with segmental and subsegmental arteries supplying the posterior right upper lobe there is no additional tiny filling defect with a subsegmental artery supplying the right lower lobe which may represent an additional embolus or artifact. In the ER she was given Lovenox 100 mg subcutaneously which equaled to 1 mg/kg of patient's body weight. She was retained on room air with adequate oxygenation. Admitted the hospitalist service observation under the care of Dr. Smith for acute pulmonary emboli. Lovenox will be continued, patient be monitored on telemetry and patient be started on oral anticoagulation tomorrow. Expected length of stay moderate depending on whether she is started on Coumadin and Lovenox for alternate agent that is more immediately therapeutic. Hospital Course 06/10 (Valerio) Patient admitted the hospitalist service under the care of Dr. Smith as observation with acute pulmonary emboli. She is maintaining adequate oxygenation on room air. She'll be provided supplemental oxygen as needed. Patient will be monitored on telemetry and troponins will be repeated in the morning as well as CBC and chem history panel. Patient has been started on Lovenox 100 mg subcutaneously and this will be continued twice daily for anticoagulation. Pharmacy will be consulted to initiate Coumadin therapy in the morning. Case management to help with evaluation of patient's insurance whether she can be started on Xarelto therapy, whether that is affordable. She could potentially be discharged in the next day if she maintains oxygenation on room air and is able to be on Lovenox with Coumadin bridge or Xarelto therapy. Daily INRs will be obtained while hospitalized. Potassium 3.3 in the emergency room, and oral replacement dose of 20 mEq is given. A magnesium level be drawn on blood in lab. Patient's glucose was elevated at 201 in the emergency room. She denies a past history of hyperglycemia or diabetes however does have a child with diabetes. Hemoglobin A1c will be checked on admission and routine Accu-Cheks will be monitored fasting and 2 hours postprandial. Patient does have a systolic murmur, an echocardiogram is ordered to be performed in the morning. Additionally, bilateral lower extremity venous duplex will be obtained. Patient recently returned from a bus trip to [place] and does have bilateral 1+ lower extremity edema. Morphine to be used on an as-needed basis for pain. Zofran to be used on an as- needed basis for nausea. Home medications are resumed. She does take losartan/ HCTZ and amlodipine. Blood pressure will need to be monitored closely. Patient is a full code and this is written. 06/11/16- Patient is seen and evaluated today. She has maintained saturations on room air greater than 93%. Patient was started on Lovenox 150 milligrams subcutaneous daily and started on oral Coumadin 5 milligrams. She'll be discharged home and plan to continue taking Coumadin 5 mg of Coumadin daily. She will have outpatient injections of Lovenox subcutaneous daily for the next 5 days. She is instructed to follow-up with Dr. May on June 14 for an INR. It is discussed that Dr. May will then monitor patient's Coumadin dosing. She will not need any further Lovenox after that time. Aspirin was discontinued at time of discharge. Did discuss this in great detail with patient's daughter who translates all information to patient. Patient does verbalize understanding and all questions were answered. This is a general summation of the patients hospital course. Please refer to the medical record if additional detail is needed. Problems: (1) Acute pulmonary embolism Status: Acute (2) Hypokalemia Status: Acute (3) Hyperglycemia Status: Acute (4) CAD (coronary artery disease) Status: Chronic (5) Depression Status: Chronic (6) Hypothyroidism Status: Chronic (7) HTN (hypertension) Status: Chronic (8) Morbid obesity Status: Chronic Code Status Full Code Home Meds Active Scripts Enoxaparin Sodium (Lovenox) 150 Mg/Ml Inj, 150 MG SQ DAILY for 5 Days Prov:MONICA VELAZQUEZ APRN 06/11/16 Warfarin Sodium (Coumadin) 5 Mg Tablet, 5 MG PO NOON, #30 TAB Take 1 tablet, by mouth, 1 time a day (at NOON). Prov:MONICA VELAZQUEZ APRN 06/11/16 Reported Medications [Difenidol] No Conflict Check, 25 MG PO DAILY 06/10/16 Losartan/Hydrochlorothiazide (Losartan-Hctz 50-12.5 mg Tab) 1 Each Tablet, 1 TAB PO DAILY 06/10/16 Amlodipine Besylate (Amlodipine Besylate) 5 Mg Tablet, 5 MG PO DAILY 06/10/16 Levothyroxine Sodium (Levothyroxine Sodium) 100 Mcg Tablet, 100 MCG PO DAILY 07/07/13 Discontinued Reported Medications Aspirin (Aspirin) 81 Mg Tab.chew, 100 MG PO HS 07/07/13 Discharge Disposition stable Copies To 1: JORGE MAY DOYLE D MD 06/11/16 1639: Hospital Course Home Meds Active Scripts Enoxaparin Sodium (Lovenox) 150 Mg/Ml Inj, 150 MG SQ DAILY for 5 Days Prov:MONICA VELAZQUEZ APRN 06/11/16 Warfarin Sodium (Coumadin) 5 Mg Tablet, 5 MG PO NOON, #30 TAB Take 1 tablet, by mouth, 1 time a day (at NOON). Prov:MONICA VELAZQUEZ APRN 06/11/16 Reported Medications [Difenidol] No Conflict Check, 25 MG PO DAILY 06/10/16 Losartan/Hydrochlorothiazide (Losartan-Hctz 50-12.5 mg Tab) 1 Each Tablet, 1 TAB PO DAILY 06/10/16 Amlodipine Besylate (Amlodipine Besylate) 5 Mg Tablet, 5 MG PO DAILY 06/10/16 Levothyroxine Sodium (Levothyroxine Sodium) 100 Mcg Tablet, 100 MCG PO DAILY 07/07/13 Discontinued Reported Medications Aspirin (Aspirin) 81 Mg Tab.chew, 100 MG PO HS 07/07/13 Discharge Disposition Have independently interviewed and examined pt. Chart reviewed. Case discussed with CM, family, and my [employer]. Care plan developed with my supervision; agree with above. Doing well today. Breathing well. No chest pressure or pain. Eating well. No n/ v. Lungs: clear bilaterally CV: regular MSE: awake alert appropriate Plan: Will d/c to home. Continue Lovenox 150mg SQ daily for 5 days. Continue Coumadin at 5mg daily. Stop ASA. Discussed signs and symptoms of bleeding to watch for. F/U with Dr May to monitor INR. S ee orders for details. Copies To 1: JORGE MAY JULIE V APRN Jun 11, 2016 16:02 CYNTHIA XIAO MD Jun 11, 2016 16:39 Procedures No known history of procedures. Encounters Encounter Location Arrival/Admit Date Discharge/Depart Date Attending Provider Discharged Inpatient (obs) [facility] 06/10/16 11:22pm 06/11/16 4 :30pm TANYA SMITH MD
--- OUTSIDE RECORDS SUMMARY | 2017-03-03 16:16 | XMS REPORT | Referral Summary ---
Author Author [facility], [facility] Medicine Organization [facility] Address Unknown Phone Unavailable Care Team Providers Care Denture Processor Name Role Phone Bob Maloney Primary Care Physician [phone] Encounter VC Date(s): 05/14/15 - 05/14/15 [facility], [address] [place] [id number]- Discharge Diagnosis: HTN (hypertension) Discharge Diagnosis: Adult hypothyroidism Discharge Diagnosis: Adjustment reaction with anxiety and depression Discharge Disposition: 01-Home or Self Care Attending Physician: Bob Maloney DO Admitting Physician: Bob Maloney DO Vital Signs Most recent to 1 oldest [Reference Range]: Temperature Tympanic 35.6 degC [36.6-38.1 degC] *LOW* (05/14/15 10:37 AM) Peripheral Pulse 64 bpm Rate [60-100 bpm] (05/14/15 10:37 AM) Blood Pressure 130/81 mmHg [90-140/60-90 mmHg] (05/14/15 10:37 AM) Problem List Condition Effective Dates Status Health Status Informant Morbid Active patient obesity(Confirmed) Allergies, Adverse Reactions, Alerts No Known Medication Allergies Medications aspirin 0 Refill(s) Start Date: 05/14/15 Status: Ordered atenolol 100 mg oral tablet 100 mg 1 tabs, Oral, Daily, # 30 tabs, 0 Refill(s), Pharmacy: [id number], 1 tabs Oral Daily Start Date: 05/14/15 Status: Ordered levothyroxine 100 mcg (0.1 mg) oral tablet 100 mcg 1 tabs, Oral, Daily, # 30 tabs, 0 Refill(s), Pharmacy: [id number], 1 tabs Oral Daily Start Date: 05/14/15 Status: Ordered Results Hematology Most recent to 1 oldest [Reference Range]: WBC [4.8-10.8 7.2 10*3/uL 10*3/uL] (05/14/15 11:10 AM) RBC [4.00-5.20 5.50 10*6/uL 10*6/uL] *HI* (05/14/15 11:10 AM) Hgb [12.0-16.0 15.7 gm/dL gm/dL] (05/14/15 11:10 AM) Hct [37.0-47.0 %] 47.6 % *HI* (05/14/15 11:10 AM) MCV [82.0-99.0 fL] 86.5 fL (05/14/15 11:10 AM) MCH [27.0-32.0 pg] 28.5 pg (05/14/15 11:10 AM) MCHC [32.0-36.0 33.0 gm/dL gm/dL] (05/14/15 11:10 AM) RDW [11.5-14.5 %] 14.7 % *HI* (05/14/15 11:10 AM) Platelet [150-400 213 10*3/uL 10*3/uL] (05/14/15 11:10 AM) MPV [8.8-14.8 fL] 13.1 fL (05/14/15 11:10 AM) Immature 0.1 % Granulocytes (05/14/15 11:10 AM) [0.0-1.0 %] Neutrophils [51-75 40 % %] *LOW* (05/14/15 11:10 AM) Lymphocytes [20-46 50 % %] *HI* (05/14/15 11:10 AM) Monocytes [4-11 %] 7 % (05/14/15 11:10 AM) Eosinophils [0-4 %] 2 % (05/14/15 11:10 AM) Basophils [0-2 %] 0 % (05/14/15 11:10 AM) Neutro Absolute 2.91 10*3 [1.90-7.00 10*3] (05/14/15 11:10 AM) Lymph Absolute 3.61 10*3 [0.80-3.30 10*3] *HI* (05/14/15 11:10 AM) [place] Absolute 0.52 10*3 [0.30-1.00 10*3] (05/14/15 11:10 AM) Eos Absolute 0.15 10*3 [0.00-0.50 10*3] (05/14/15 11:10 AM) Baso Absolute 0.03 10*3 [0.00-0.20 10*3] (05/14/15 11:10 AM) Chemistry Most recent to 1 oldest [Reference Range]: Sodium Lvl [135-144 143 mEq/L mEq/L] (05/14/15 11:10 AM) Potassium Lvl 4.7 mEq/L [3.5-5.2 mEq/L] (05/14/15 11:10 AM) Chloride [99-111 104 mEq/L mEq/L] (05/14/15 11:10 AM) CO2 [22-31 mEq/L] 30 mEq/L (05/14/15 11:10 AM) AGAP [3-20] 9 (05/14/15 11:10 AM) BUN [10-20 mg/dL] 13 mg/dL (05/14/15 11:10 AM) Glucose Lvl [70-99 124 mg/dL mg/dL] *HI* (05/14/15 11:10 AM) Creatinine Lvl 0.71 mg/dL [0.57-1.11 mg/dL] (05/14/15 11:10 AM) eGFR [>60 mL/min] >60 mL/min 1 (05/14/15 11:10 AM) Calcium Lvl 9.6 mg/dL [8.9-10.5 mg/dL] (05/14/15 11:10 AM) Albumin Lvl [3.4-4.8 4.2 gm/dL gm/dL] (05/14/15 11:10 AM) Total Protein 7.7 gm/dL [6.2-8.1 gm/dL] (05/14/15 11:10 AM) Globulin [1.8-4.0 3.5 gm/dL gm/dL] (05/14/15 11:10 AM) ALT [0-55 U/L] 15 U/L (05/14/15 11:10 AM) AST [5-34 U/L] 22 U/L (7/2/15 11:10 AM) Alk Phos [40-150 105 U/L U/L] (05/14/15 11:10 AM) Bili Total [0.2-1.2 0.7 mg/dL mg/dL] (05/14/15 11:10 AM) Chol [0-199 mg/dL] 180 mg/dL (05/14/15 11:10 AM) Trig [0-149 mg/dL] 147 mg/dL (05/14/15 11:10 AM) HDL [40-84 mg/dL] 48 mg/dL (05/14/15 11:10 AM) LDL [0-130 mg/dL] 103 mg/dL (05/14/15 11:10 AM) VLDL Cholesterol 29 mg/dL [0-28 mg/dL] *HI* (05/14/15 11:10 AM) Cardiac Risk 3.8 [0.0-5.0] (05/14/15 11:10 AM) TSH with Reflex Free 1.62 T4 [0.35-4.94] (05/14/15 11:10 AM) 1Result Comment: Multiply eGFR results by 1.21 for race. Immunizations No data available for this section Procedures No data available for this section Social History Social History Type Response Smoking Status Never smoker Assessment and Plan Extracted from: Title: Office Visit Note Author: Bob Maloney DO Date: 05/14/15 Assessment/Plan Adjustment reaction with anxiety and depression 1. Express my condolences for the patient lost of her , she was receptive. 2. I advised the patient that benzodiazepine use long-term is contraindicated for age group however since she is traveling to [place] in the next couple of days I do not want to discontinue this medication abruptly. 3. Clorazepate was refilled at 7.5 mg twice a day, prescription was given for 30 tablets. I advised her to follow-up with a physician in [place] as soon as she is able to for them to further manage her anxiety and depression. 4. In the long-term it would be best to start this patient on a SSRI. Ordered: atenolol, 100 mg 1 tabs, Oral, Daily, # 30 tabs, 0 Refill(s), Pharmacy: [id number], 1 tabs Oral Daily clorazepate, 7.5 mg 1 tabs, Oral, BID, # 30 tabs, 0 Refill(s) levothyroxine, 100 mcg 1 tabs, Oral, Daily, # 30 tabs, 0 Refill(s), Pharmacy: [facility], 1 tabs Oral Daily Office Visit Level 4 Est 15869 Adult hypothyroidism 1. Levothyroxine was refilled for 100 _ 1g daily. 2. TSH ordered today, once her get results we will titrate her medication accordingly. Ordered: atenolol, 100 mg 1 tabs, Oral, Daily, # 30 tabs, 0 Refill(s), Pharmacy: [facility], 1 tabs Oral Daily clorazepate, 7.5 mg 1 tabs, Oral, BID, # 30 tabs, 0 Refill(s) levothyroxine, 100 mcg 1 tabs, Oral, Daily, # 30 tabs, 0 Refill(s), Pharmacy: [facility], 1 tabs Oral Daily Lipid Panel Office Visit Level 4 Est 62307 TSH with Reflex Free T4 HTN (hypertension) 1. Continue with atenolol 100 mg daily. 2. Blood pressures are well controlled at this time. Ordered: atenolol, 100 mg 1 tabs, Oral, Daily, # 30 tabs, 0 Refill(s), Pharmacy: [facility], 1 tabs Oral Daily clorazepate, 7.5 mg 1 tabs, Oral, BID, # 30 tabs, 0 Refill(s) levothyroxine, 100 mcg 1 tabs, Oral, Daily, # 30 tabs, 0 Refill(s), Pharmacy: [facility], 1 tabs Oral Daily CBC w/ Differential Comprehensive Metabolic Panel Office Visit Level 4 Est 22371
--- OUTSIDE RECORDS SUMMARY | 2017-03-03 16:16 | XMS REPORT | Referral Summary ---
Author Author [facility] Organization [facility] Address Unknown Phone Unavailable Care Team Providers Care Electrical Repairer Name Role Phone Bob Maloney Primary Care Physician [phone] Encounter VC Date(s): 06/27/16 - 06/27/16 [facility], [address] [place] [id number]- Discharge Diagnosis: PE (pulmonary embolism) Discharge Disposition: 01-Home or Self Care Attending Physician: Bob Maloney DO Admitting Physician: Bob Maloney DO Vital Signs Most recent to 1 oldest [Reference Range]: Temperature Tympanic 35.9 degC [36.6-38.1 degC] *LOW* (06/27/16 10:24 AM) Peripheral Pulse 83 bpm Rate [60-100 bpm] (06/27/16 10:24 AM) Blood Pressure 141/75 mmHg [90-140/60-90 mmHg] *HI* (06/27/16 10:24 AM) Problem List Condition Effective Dates Status Health Status Informant Morbid Active patient obesity(Confirmed) Allergies, Adverse Reactions, Alerts No Known Medication Allergies Medications aspirin 0 Refill(s) Start Date: 05/14/15 Status: Ordered atenolol 100 mg oral tablet 100 mg 1 tabs, Oral, Daily, # 30 tabs, 0 Refill(s), Pharmacy: [facility], 1 tabs Oral Daily Start Date: 05/14/15 Status: Ordered levothyroxine 100 mcg (0.1 mg) oral tablet 100 mcg 1 tabs, Oral, Daily, # 90 tabs, 3 Refill(s), Pharmacy: [facility], 1 tabs Oral Daily Start Date: 06/15/16 Status: Ordered Paxil 20 mg oral tablet 20 mg 1 tabs, Oral, Daily, # 30 tabs, 0 Refill(s), Pharmacy: [facility] # [id number], 1 tabs Oral Daily Start Date: 06/27/16 Status: Ordered Xarelto 20 mg oral tablet 20 mg 1 tabs, Oral, qPM, # 30 tabs, 3 Refill(s), Pharmacy: [facility] # [id number], 1 tabs Oral qPM Start Date: 06/24/16 Status: Ordered Results No data available for this section Immunizations No data available for this section Procedures No data available for this section Social History Social History Type Response Smoking Status Never smoker Assessment and Plan Extracted from: Title: Office Visit Note Author: Bob Maloney DO Date: 06/27/16 Assessment/Plan 1.PE (pulmonary embolism), Other pulmonary embolism without acute cor pulmonale 1. Continue with Xarelto 15 mg twice a day for one month. We plan on increasing the titration to 20 mg daily after the first month. 2. Repeat CT of the chest 6 months after anticoagulation therapy. Ordered: Office Visit Level 4 Est 99716 Acid reflux 1. Continue with omeprazole 20 mg daily. 2. Diet modification recommended. Ordered: Office Visit Level 4 Est 94843 Anxiety, generalized 1. Discontinue buspirone. 2. While she was in [place] they were treating her with lorazepam to take 3- 4 times per day. I do not think this is the best way to treat her anxiety. 3. She was started on Paxil 20 mg daily. 4. Follow-up in one week for reevaluation, sooner if any new concerns. Ordered: Office Visit Level 4 Est 66543 Orders: PARoxetine, 20 mg 1 tabs, Oral, Daily, # 30 tabs, 0 Refill(s), Pharmacy: [facility] #[id number], 1 tabs Oral Daily
[2017-03-03] MEDS ORDERED: [UNRECOGNIZED DRUG - CODE] PO (16:40)
[2017-03-03 16:42] LABS: BASOPHILS # (AUTO) 0.1 T/MM3 (0-0.2); BASOPHILS % (AUTO) 0.4 % (0-2); EOSINOPHILS # (AUTO) 0.2 T/MM3 (0-0.5); EOSINOPHILS % (AUTO) 1.1 % (0-4); HCT - HEMATOCRIT 44.5 % (36-46); HGB - HEMOGLOBIN 14.6 GM/DL (12-16); IMMATURE GRANULOCYTE # (AUTO) 0.04 T/MM3 (0.00-0.03); IMMATURE GRANULOCYTE % (AUTO) 0.3 % (0.0-0.5); LYMPHOCYTES # (AUTO) 4.9 T/MM3 (1-4.8); LYMPHOCYTES % (AUTO) 34.1 % (23-45); MEAN CORPUSCULAR HGB 28.1 UUG (26-34); MEAN CORPUSCULAR HGB CONC(MCHC 32.8 GM/DL (31-37); MEAN CORPUSCULAR VOLUME 85.7 UM3 (80-100); MEAN PLATELET VOLUME 11.5 UM3 (9.4-12.4); MONOCYTES # (AUTO) 0.7 T/MM3 (0-0.8); MONOCYTES % (AUTO) 5.2 % (0-9.0); NEUTROPHILS #(AUTO)-ABSOLUTE 8.4 T/MM3 (1.8-7.7); NEUTROPHILS % (AUTO) 58.9 % (33-66); RED BLOOD COUNT 5.19 M/MM3 (4.00-5.20); WBC - WHITE BLOOD COUNT 14.3 T/MM3 (4.5-11.0)
[2017-03-03] MEDS ORDERED: LOSARTAN PO (16:46)
[2017-03-03] MEDS ORDERED: OMEP-122 PO (16:46)
[2017-03-03] MEDS ORDERED: AMLODIPINE PO (16:46)
[2017-03-03 16:49] LABS: ANION GAP 17 MEQ/L (5-15); BUN/CREATININE RATIO 18 RATIO (6-26); CALCIUM 9.3 MG/DL (8.4-10.2); CHLORIDE 100 MEQ/L (98-107); CO2 - CARBON DIOXIDE 27 MEQ/L (22-30); GLOMERULAR FILTRATION RATE 55; GLUCOSE 184 MG/DL (65-110); SODIUM 144 MEQ/L (134-144)
--- NOTE | 2017-03-03 16:49 | NUR ---
MED PT GIVEN INSTUCTIONS REGARDING ADENOSINE AND MEDICATION EFFECT. DR WILLIAMSON AT BEDSIDE. THIS RN AT BEDSIDE, JARETT RENEE ASSISTING.
[2017-03-03 17:01] LABS: PROBNP 457 PG/ML (0-175)
[2017-03-03 17:05] LABS: INR 1.63 (0.76-1.04); PROTHROMBIN TIME 17.8 SEC (9.31-12.49)
--- NOTE | 2017-03-03 17:06 | NUR ---
STATUS PT DENIES CHEST PAIN AT THIS TIME. SON IN LAW AT BEDSIDE TO ASSIST WITH TRANSLATION. PT GIVEN EXPLAINATION REGARDING PLAN OF CARE AND MONITORING SYSTEM. UNDERSTANDING VERBALIZED.
--- NOTE | 2017-03-03 17:24 | NUR ---
PORTABLE XRY AT BEDSIDE.
[2017-03-03] MEDS ORDERED: ADENOSINE 12mg/4ml INJECTION vl IV ONE (17:30)
[2017-03-03] MEDS ORDERED: ADENOSINE 6mg/2ml INJECTION vl IV ONE (17:30)
--- NOTE | 2017-03-03 17:33 | NUR ---
DR DR WILLIAMSON AT BEDSIDE.
[2017-03-03] MEDS ORDERED: NORMAL SALINE 500 ML IV ONE (17:45)
[2017-03-03] MEDS ORDERED: IOHEXOL 350 MG/ML 75ml INJECTION ONE (17:54)
[2017-03-03] MEDS ORDERED: NORMAL SALINE 100 ML ONE (17:55)
[2017-03-03] MEDS ORDERED: SALINE FLUSH 10ml SYRINGE ONE (17:55)
--- NOTE | 2017-03-03 18:05 | NUR ---
CT PT TO CT [facility]IA [facility].
--- NOTE | 2017-03-03 18:20 | ERPDOC ---
Departure Disposition Decision Date: Mar 03, 2017 Disposition Decision Time: 19:00 Disposition: 01 DISCHARGED HOME, SELF-CARE Impression Impression Impression: Primary Impression: SVT (supraventricular tachycardia) Severity: Moderate Condition: Improved Seen By: Physician only Referrals: JORGE MAY DO (Family) 2 Days WESLY COATES MD 2 Days Patient Instructions: Supraventricular Tachycardia (ED) Problems/Meds/Labs Reviewed?: Yes Medications reviewed and manag: Yes Follow up care ordered?: Yes Mental Status: Alert, Oriented Scripts Metoprolol Tartrate (Lopressor) 50 Mg Tablet 25 MG PO BID for 10 Days, #10 TAB 0 Refills Prov: SARA WILLIAMSON 03/03/17 Critical Care Note Total Time (mins): 37 Critical Care Spent: [id number] care of pt, Reviewing test results, Discuss the case w/staff, Documenting the MR, Discussion w/ family/DPOA During this visit the pt was: At Risk of Deterioration HPI - General Medical General Chief Complaint: Chest Pain Stated Complaint: CHEST PAIN, DIZZY Time Seen by Provider: 16:22 Source: patient, family Exam Limitations: language barrier (Pt. requests Son in Law as oracle forms developer) HPI - General Medical Initial Comments 66-year-old female presents to the emergency department with a chief complaint of feeling her heart beating hard in her chest. She feels like her heart is also beating fast. Patient noted onset of symptoms at approximately 1 PM today while at home. Symptoms have been persistent in nature since onset. Patient also notes feeling light-headed. Patient denies any other complaints or associated symptoms. Her symptoms are moderate in nature. No radiation. She does not note anything that makes her symptoms any better or any worse. Patient has a history of similar symptoms in the past. Occurred At: home Onset: Gradual Allergies: Coded Allergies: No Known Allergies (Unverified , 03/03/17) Past History Patient Surgical History DENIES PRIOR SURGERIES Past Medical History Metabolic: hypertension Cardiac: CAD, ME Respiratory: pulmonary embolus Surgical History Denies Surgeries Family History Family PMH: FOUND: CAD, [place] Vaccines Hx Influenza Vaccination: No Hx Pneumococcal Vaccination: No Social History Smoking Status: Never smoker Does patient use chewing tobac: No Second Hand Exposure: No Substance Use Type: does not use Alcohol Intake: none Review of Systems Constitutional Constitutional: DENIES: chills, fever Eyes General: DENIES: erythema, exudate Lids/Accessories: DENIES: erythema, swelling Vision: DENIES: acuity, blurring ENMT Ears: DENIES: drainage, erythema Hearing: DENIES: hearing loss Balance: DENIES: ataxia, falling to one side Sinuses: DENIES: congestion, pain Nose: DENIES: nosebleeds, pain Mouth/Throat: DENIES: painful swallowing, sore throat Teeth: DENIES: pain Jaw: DENIES: pain Cardiovascular Cardiac: DENIES: chest pain, dyspnea on exertion Rhythm/Rate: palpitations, DENIES: irregular beat Vascular: DENIES: pedal edema, unilateral swelling Pulmonary Respiratory: DENIES: cough, dyspnea, pleuritic chest pain, sputum GI Upper Abdomen: DENIES: nausea, pain, vomiting Lower Abdomen: DENIES: diarrhea, pain General: DENIES: dysuria, frequency Musculoskeletal General: DENIES: joint pain, tenderness Integumentary Skin: DENIES: itching, rash Neurological General: DENIES: headache, numbness, weakness Psychiatric Psychiatric: DENIES: emotional instability, suicidal ideation/attempt Endocrine Endocrine: DENIES: polydipsia, polyphagia Hematologic/Lymphatic Hematologic/Lymphatic: DENIES: frequent nosebleeds, lymphadenopathy Allergic/Immunological Allergic/Immunoligical: DENIES: allergic reactions, hives Physical Exam General General Nourishment: well nourished, well developed, appears stated age, no acute distress, adult Vitals and Pain First Documented Vital Signs Date Time Temp Pulse Resp B/P Pulse Ox O2 Delivery O2 Flow Rate FiO2 03/03/17 16:15 98.1 137 16 128/62 98 Room Air 03/03/17 17:00 2.00 Weight: Kilograms: 96.600 Height (feet): 5 Height (inches): 4.00 Triage Pain Scale: Normal Exams: Head: Normocephalic w/o trauma Eyes: Pupils are PERRLA w/ EOMI, No scleral icterus, irritation, or foreign bodies noted ENMT: No facial trauma, nasal exudates, pharyngeal erythema, or exudates are noted Dental: No fractured, loose, or missing teeth noted Neck: Full range of motion, without adenopathy, JVD, bruits or thyromegaly Chest/Resp: Clear all plata, with good airflow, and symmetry bilaterally CV: Regular rate and rhythm, without murmur or gallop, Pulses 2+ all extremities, capillary refill, <2 seconds all ext., no pedal edema noted Abdomen: Bowel sounds positive, soft, non-tender, non-distended, no hepatosplenomegaly, masses or bruits noted Lymphatic: No lymphadenopathy, or lymphedema noted Musculoskeletal: No tenderness, or deformity noted, good range of motion, all extremities Integumentary: No rashes, hives, or bruising noted, hair and nails, without abnormality Neurologic: Patient is alert, and oriented, cranial nerves, motor/sensory/ cerebellar, exams w/o gross deficits, to observation Psychiatric: Patient exhibits, appropriate attention, emotion and affect Cardiovascular (brief) Comments HR - 135 bpm with SVT on monitor/EKG. Differential Diagnoses Considering: Acute ME, Medication Effect, Metabolic, Other (SVT/) Progress Results/Orders Orders Procedure Category Date Status Time Cbc W/Auto LAB 03/03/17 Complete Diff-Reflex Manual 16:34 Bmp - Basic Metabolic LAB 03/03/17 Complete Panel 16:34 Probnp LAB 03/03/17 Complete 16:34 Troponin I W LAB 03/03/17 Complete Hemolysis Index 16:34 INR LAB 03/03/17 Complete 16:34 EKG EKG 03/03/17 Taken 16:34 Chest 1 View RAD 03/03/17 Taken 16:34 Iv Lock (Ed Only) EDM 03/03/17 Transmitted 16:34 EKG EKG 03/03/17 Taken 17:25 Adenosine (Adenocard) PHA 03/03/17 Complete 17:30 Adenosine (Adenocard) PHA 03/03/17 Complete 17:30 Normal Saline (Ns) PHA 03/03/17 Complete 17:[address] 03/03/17 Taken 17:35 Iohexol (Omnipaque) PHA 03/03/17 Complete 17:54 Normal Saline (Ns) PHA 03/03/17 Complete 17:55 Saline Flush (Iv PHA 03/03/17 Complete Flush) 17:55 Metoprolol Tartrate PHA 03/03/17 Complete (Lopressor) 19:30 Lab Results Laboratory Tests Test 03/03/17 16:28 White Blood Count 14.3T/MM3 Red Blood Count 5.19M/MM3 Hemoglobin 14.6GM/DL Hematocrit 44.5% Mean Corpuscular Volume 85.7UM3 Mean Corpuscular Hemoglobin 28.1UUG Mean Corpuscular Hemoglobin Concent 32.8GM/DL RDW Standard Deviation 46.3FL Platelet Count 280T/MM3 Mean Platelet Volume 11.5UM3 Immature Granulocyte % (Auto) 0.3% Neutrophils (%) (Auto) 58.9% Lymphocytes (%) (Auto) 34.1% Monocytes (%) (Auto) 5.2% Eosinophils (%) (Auto) 1.1% Basophils (%) (Auto) 0.4% Absolute Immature Granulocyte (auto 0.04T/MM3 Absolute Neutrophils (auto) 8.4T/MM3 Absolute Lymphocytes (auto) 4.9T/MM3 Absolute Monocytes (auto) 0.7T/MM3 Absolute Eosinophils (auto) 0.2T/MM3 Absolute Basophils (auto) 0.1T/MM3 Prothromb Time International Ratio 1.63 Turbidity < 20 Sodium Level 144MEQ/L Potassium Level 4.0MEQ/L Chloride Level 100MEQ/L Carbon Dioxide Level 27MEQ/L Anion Gap 17MEQ/L Blood Urea Nitrogen 18.0MG/DL Creatinine 1.0MG/DL Glomerular Filtration Rate Calc 55 BUN/Creatinine Ratio 18RATIO Glucose Level 184MG/DL Calculated Osmolality 284MOSM/KG Calcium Level 9.3MG/DL Icterus Index < 2 Troponin I < 0.012ng/ml PO-Fdh-L-Type Natriuretic Peptide 457PG/ML Chemistry Specimen Hemolysis < 15 Medications Current ED Medications Adenosine (Adenocard) 6 mg O ONCE IV Last administered on 03/03/17 16:50; Start 03/03/17 at 17:30; Stop 03/03/17 at 17:31; Status DC Adenosine 12 mg 12 mg O ONCE IV Last administered on 03/03/17 16:54; Start at 17:30; Stop 03/03/17 at 17:31; Status DC Sodium Chloride (NS) 500 ml @ 999 mls/hr Q31M ONCE IV Last administered on 18:29; Start 03/03/17 at 17:45; Stop 03/03/17 at 18:15; Status DC Iohexol 1 bottle 1 bottle STK-MED ONCE .ROUTE ; Start 03/03/17 at 17:54; Stop at 17:55; Status DC Sodium Chloride (NS) 100 ml @ As Directed STK-MED ONCE .ROUTE ; Start 03/03/17 at 17:55; Stop 03/03/17 at 17:56; Status DC Sodium Chloride (Iv Flush) 10 ml STK-MED ONCE .ROUTE ; Start 03/03/17 at 17:55; Stop 03/03/17 at 17:56; Status DC Metoprolol Tartrate (Lopressor) 12.5 mg O ONCE PO Last administered on t 19:51; Start 03/03/17 at 19:30; Stop 03/03/17 at 19:31; Status DC Progress Progress Labs / imaging were discussed in detail with the patient and family and questions are answered. Patient is offered admission to the hospital but she declines. Patient is discussed with cardiology (Dr. Coates) after declining admission to the hospital. Cardiologies recommendation is to start the patient on a low-dose beta nicolas twice a day and have her follow up with cardiology on Monday. Patient and family verbalized agreement and understanding. 1st dose of beta nicolas therapies administered in the emergency Department. Patient is discharged home in improved condition in accordance with her wishes. She is to follow up as instructed. Patient is to return to the emergency Department if her condition worsens or changes in any manner. Patient and family are in agreement with the current plan of management. Prescription for Lopressor is provided. 37 minutes of critical care time was assessed to the patient after 6 mg of adenosine was unsuccessful and 12 mg of adenosine intravenously x 1 broke the patient's SVT rhythm into normal sinus rhythm. Patient is asymptomatic following chemical cardioversion. Patient required repeated assessment at the bedside, complex medical decision-making, and had potential for decompensation. EKG EKG : Rate: >100 Rhythm: other (SVT) [place]: normal QRS: normal Intervals: normal ST/T: normal Interpreted by: signing physician EKG Comments EKG #2 - Sinus Rhythm. 79 bpm. No STEMI. - Post 12 mg of Adenosine IV. Xray Xray : Interpretation: Normal, Interpreted by [place] CT CT : CT: Chest IV contrast Interpretation: Faxed Report (no acute processes. Cardiomegaly.) SARA WILLIAMSON DO Mar 03, 2017 18:20
--- NOTE | 2017-03-03 18:23 | NUR ---
IMAGING PT RETURN FROM IMAGING AT THIS TIME. FAMILY AT SIDE.
--- NOTE | 2017-03-03 19:10 | NUR ---
STATUS PT AWAKE, ALERT. DENIES PAIN, NEED. REMAINS IN SR RATE 70'S.
[2017-03-03] MEDS ORDERED: METO-482 PO (19:23)
[2017-03-03 19:59] VITALS: BP 134/72; PULSE 77; RESP 16; TEMP 98.3; O2SAT 93
--- NOTE | 2017-03-03 19:59 | NUR ---
DEPART PT DIMISSED VIA WC TO LOBBY WITH FAMILY BY THELMA SOLO.
--- NOTE | 2017-03-05 10:16 | DI ---
Indication: ITS.REASON: tachycardia PROCEDURE: CTA PULMONARY EMBOLI: Encounter: Initial Comparison: January 19, 2017 Technique: Axial CT pulmonary angiographic phase images were performed through the chest after the administration of intravenous contrast. Coronal and Sagittal MIP reconstructed images were created and reviewed. Automated Exposure Control and Iterative Reconstruction dose reducing techniques were utilized. Contrast: Omnipaque 350 70 mL Findings: Pulmonary arteries: Exam is diagnostic to the subsegmental pulmonary arterial level. No filling defects identified to suggest a pulmonary embolus. Other findings: Mild atelectasis without consolidative pneumonia, gross pleural effusion or pneumothorax. Central airways are patent. No axillary or mediastinal adenopathy. Heart size is unchanged. No significant pericardial effusion. Upper abdomen shows no acute findings. Impression: No pulmonary embolus or acute disease process seen. There is a preliminary report by [employer] radiologic. .
--- NOTE | 2017-03-05 10:18 | DI ---
Indication: ITS.REASON: Chest pain starting today PROCEDURE: CHEST 1 VIEW: Encounter: Initial Comparison: June 24, 2016 FINDINGS: The lungs are clear. There is no abnormal airspace opacity, pleural effusion or pneumothorax identified. The heart size, pulmonary vasculature and mediastinum are stable. No significant skeletal abnormality is seen. IMPRESSION: No acute cardiopulmonary abnormality. .
== END 2017-03-03 19:59 | disposition home or self-care (01) ==
LOC: ED 16:11
DX: I47.1 Supraventricular tachycardia (principal); I10 Essential (primary) hypertension; I25.10 Atherosclerotic heart disease of native coronary artery without angina pectoris
CPT/HCPCS: 71010; 71275; 80048; 83880; 84484; 85025; 85610; 93005; 96361; 96374; 99284; A9270; J0153; J7050; Q9967